=== PATIENT | female | born 1990 | race American Indian/Alaskan Native ===

== ENCOUNTER 2019-03-19 09:22 | Emergency (ER) | payer SELFPAY ==
--- NOTE | 2019-03-19 10:38 | Emergency Department Report ---
ED Dysuria HPI - HPI Chief Complaint: Vaginal Bleeding Stated Complaint: VAGINAL BLEEDING/CRAMPS Time Seen by Provider: 03/19/19 10:34 Symptoms: Dysuria: No, Frequency: No, Suprapubic Pain: No, Flank Pain: No, Fever: No, Hematuria: No, Abdominal Pain: No, Previous UTI's: No Other History: Patient is a 28-year-old comes to the ER today concerned that she is because of irregular periods. She is on no home medications. She denies any major medical problems. She is 4 para 2 she's had one miscarriage and one . ED Review of Systems ROS: Stated complaint: VAGINAL BLEEDING/CRAMPS Other details as noted in HPI Comment: All other systems reviewed and negative ED Past Medical Hx - Past Medical History Previous Medical History?: No - Surgical History Past Surgical History?: No - Social History Smoking Status: Former Smoker Substance Use Type: None Dysuria Exam - Exam General: Vital signs noted. No distress. Alert and acting appropriately. Exam: Yes Moist Mucous Membranes, No CVA Tenderness, No Abdominal Tenderness, No Rigidity or Guarding ED Course Vital Signs 03/19/19 09:36 Temperature 99.1 F Pulse Rate 72 Respiratory 16 Rate Blood Pressure 179/156 [Left] O2 Sat by Pulse 100 Oximetry ED Medical Decision Making - Lab Data Result diagrams: 03/19/19 10:53 03/19/19 10:53 - Medical Decision Making Lab Results 03/19/19 03/19/19 03/19/19 Range/Units 10:53 10:53 Unknown WBC 3.4 L (4.5-11.0) K/mm3 RBC 3.69 (3.65-5.03) M/mm3 Hgb 13.1 (10.1-14.3) gm/dl Hct 35.7 (30.3-42.9) % MCV 97 (79-97) fl MCH 35 H (28-32) pg MCHC 37 H (30-34) % RDW 11.9 L (13.2-15.2) % Plt Count 183 (140-440) K/mm3 Sodium 136 L (137-145) mmol/L Potassium 4.4 (3.6-5.0) mmol/L Chloride 100.3 (98-107) mmol/L Carbon Dioxide 25 (22-30) mmol/L Anion Gap 15 mmol/L BUN 7 (7-17) mg/dL Creatinine 0.7 (0.7-1.2) mg/dL Estimated GFR > 60 ml/min BUN/Creatinine Ratio 10 % Glucose 102 H (65-100) mg/dL Calcium 8.9 (8.4-10.2) mg/dL Urine Color Yellow (Yellow) Urine Turbidity Hazy (Clear) Urine pH 6.0 (5.0-7.0) Ur Specific [place] 1.009 (1.003-1.030) Urine Protein <15 mg/dl (Negative) mg/dL Urine Glucose (UA) Neg (Negative) mg/dL Urine Ketones Neg (Negative) mg/dL Urine Blood Lg (Negative) Urine Nitrite Neg (Negative) Urine Bilirubin Neg (Negative) Urine Urobilinogen < 2.0 (<2.0) mg/dL Ur Leukocyte Esterase Neg (Negative) Urine WBC (Auto) 6.0 (0.0-6.0) /HPF Urine RBC (Auto) 125.0 (0.0-6.0) /HPF U Epithel Cells (Auto) 1.0 (0-13.0) /HPF Urine HCG, Qual Negative (Negative) Vital Signs 03/19/19 03/19/19 03/19/19 09:36 11:49 11:50 Temperature 99.1 F Pulse Rate 72 59 L Respiratory 16 16 16 Rate Blood Pressure 179/156 109/69 [Left] O2 Sat by Pulse 100 Oximetry Labs noted. Patient was concerned that she is . Hemoglobin is normal C home with discharge follow-up clinic care with PROVIDER ENGAGEMENT EXECUTIVE. Critical care attestation.: If time is entered above; I have spent that time in minutes in the direct care of this critically ill patient, excluding procedure time. ED Disposition Clinical Impression: DUB (dysfunctional uterine bleeding) Disposition: DC-01 TO HOME OR SELFCARE Is pt being admited?: No Does the pt Need Aspirin: No Condition: Stable Instructions: Menorrhagia (ED) Additional Instructions: DIET TOLERATED FOLLOW UP WITH OBGYN REFERRAL BELOW ACTIVITY TOLERATED MOTRIN OR TYLENOL FOR PAIN OR FEVER RETURN TO THE ER FOR WORSENING SYMPTOMS NOT RELIEVED BY YOUR MEDICATIONS. BP WAS ELEVATED TODAY. PLEASE MONITOR IF IT PERSISTS FOLLOW UP WITH PCP REFERRAL BELOW Referrals: SHARMIN WILKINSON MD [Staff Physician] - 3-5 Days MILANA LEYVA MD [Staff Physician] - 3-5 Days Time of Disposition: 11:08
[2019-03-19 10:51] LABS: Bilirubin,Urine NEG (Negative); Blood,Urine LG (Negative); Color,Urine Yellow (Yellow); HCG Qualitative,Urine Negative (Negative); Protein,Urine <15 mg/dL mg/dL (Negative); Urobilinogen,Urine < 2.0 mg/dL (<2.0)
[2019-03-19 11:03] LABS: Mean Corpuscular HGB Conc 37 % (30-34); Mean Corpuscular Volume 97 fl (79-97); Platelet Count 183 K/mm3 (140-440); Red Blood Count 3.69 M/mm3 (3.65-5.03); Red Cell Distribution Width 11.9 % (13.2-15.2)
[2019-03-19 11:06] LABS: Hematocrit 35.7 % (30.3-42.9); Hemoglobin 13.1 gm/dl (10.1-14.3)
[2019-03-19 11:24] LABS: BUN/Creatinine Ratio 10; Blood Urea Nitrogen 7 mg/dL (7-17); Calcium 8.9 mg/dL (8.4-10.2); Hemolysis Index 15
[2019-03-19 11:50] VITALS: BP 109/69
== END 2019-03-19 11:51 | disposition home or self-care (01) ==
LOC: ED 09:22
DX: N93.8 Other specified abnormal uterine and vaginal bleeding (principal); Z87.891 Personal history of nicotine dependence; Z88.6 Allergy status to analgesic agent
CPT/HCPCS: 36415; 80048; 81001; 81025; 85027

== ENCOUNTER 2019-04-09 13:19 | Emergency (ER) | payer OTHER ==
[2019-04-09 13:30] VITALS: BP 111/66
--- NOTE | 2019-04-09 13:31 | Event Note ---
ED Screening Note ED Screening Note: abscess below the chin began yesterday small amount of drainage thinks she had an insect bite but did not feel or see anything bite her no PMHx no DM This initial assessment/diagnostic orders/clinical plan/treatment(s) is/are subject to change based on patients health status, clinical progression and re- assessment by fellow clinical providers in the ED. Further treatment and workup at subsequent clinical providers discretion. Patient/guardian urged not to elope from the ED as their condition may be serious if not clinically assessed and managed.
[2019-04-09] MEDS ORDERED: CLEOCIN PO ONE (15:15)
[2019-04-09] MEDS ORDERED: IBUPROFEN PO ONE (15:15)
--- NOTE | 2019-04-09 15:17 | Emergency Department Report ---
Abscess Boil HPI - HPI Chief Complaint: Skin/Abscess/Foreign Body Stated Complaint: SPIDER BITE Time Seen by Provider: 04/09/19 13:29 Duration: 2 Days Location: Head (left chin) History: Yes Pain, Yes Insect Bite, No Fever, No Purulent Drainage, No Numbness, No Foreign Body, No Previous History HPI: This 29-year-old female who presents to ED complaining of pain and redness of the left driver that happened 2 days ago. Patient said yesterday she noticed the area was red and painful to touch. Patient states she noticed a little bit of drainage but otherwise no fever, no nausea vomiting or abdominal pain. Home Medications: Previous Rx's Medication Instructions Recorded Last Taken Type Clindamycin [Clindamycin CAP] 300 mg PO TID #30 capsule 04/09/19 Unknown Rx Ibuprofen [Motrin 800 MG tab] 800 mg PO TID #30 tablet 04/09/19 Unknown Rx Allergies/Adverse Reactions: Allergies Allergy/AdvReac Type Severity Reaction Status Date / Time acetaminophen [From Tylenol] AdvReac Unknown Verified 04/09/19 13:22 ED Review of Systems ROS: Stated complaint: SPIDER BITE Other details as noted in HPI Comment: All other systems reviewed and negative ED Past Medical Hx - Past Medical History Previous Medical History?: No - Surgical History Past Surgical History?: Yes Additional Surgical History: C/S - Social History Smoking Status: Current Every Day Smoker - Medications Home Medications: Home Medications Medication Instructions Recorded Confirmed Last Taken Type Clindamycin [Clindamycin CAP] 300 mg PO TID #30 capsule 04/09/19 Unknown Rx Ibuprofen [Motrin 800 MG tab] 800 mg PO TID #30 tablet 04/09/19 Unknown Rx ED Abscess Boil Physical Exam - Exam General: Vital signs noted. No distress. Alert and acting appropriately. Size: 1 cm Exam: Yes Tenderness, Yes Normal Neurologic Exam, Yes Normal Circulation, No Fluctuance, No Surrounding Cellulites/Erythema, No Lymphangitis, No Crepitation, No Heart Murmur Exam: Redness, nonfluctuant, cellulitis tender 1 cm noted at left chin ED Course Vital Signs 04/09/19 13:29 Temperature 98.7 F Pulse Rate 95 H Respiratory 16 Rate Blood Pressure 111/66 [Right] O2 Sat by Pulse 99 Oximetry Critical care attestation.: If time is entered above; I have spent that time in minutes in the direct care of this critically ill patient, excluding procedure time. ED Medical Decision Making - Medical Decision Making 29-year-old female presents with insect bite/cellulitis of the left chin. Patient was given clindamycin and Motrin in the ED. Discussed warm compresses 3 times a day she will be sent home on antibiotics. Vital signs are normal she is in no acute distress she has instructions to follow up with her primary care physician ED Disposition Clinical Impression: Insect bite, Cellulitis Disposition: TO HOME OR SELFCARE Is pt being admited?: No Does the pt Need Aspirin: No Condition: Stable Instructions: Cellulitis (ED), Insect Bite or Sting (ED) Additional Instructions: Make sure to follow up with the primary care physician as discussed. Take all your medications as you've been prescribed. If you have any worsening symptoms or develop new symptoms please return to ED immediately. Prescriptions: Clindamycin [Clindamycin CAP] 300 mg PO TID #30 capsule Ibuprofen [Motrin 800 MG tab] 800 mg PO TID #30 tablet Referrals: FELIPA CHATTERJEE MD [Primary Care Provider] - 3-5 Days [facility] [Outside] - 3-5 Days [facility] [Outside] - 3-5 Days Forms: Accompanied Note, Work/School Release Form(ED) Time of Disposition: 15:24
== END 2019-04-09 16:10 | disposition home or self-care (01) ==
LOC: ED 13:19
DX: L03.211 Cellulitis of face (principal); F17.200 Nicotine dependence, unspecified, uncomplicated; Z88.8 Allergy status to other drugs, medicaments and biological substances; Z79.1 Long term (current) use of non-steroidal anti-inflammatories (NSAID)
CPT/HCPCS: 99283

== ENCOUNTER 2019-08-22 12:56 | Emergency (ER) | payer MEDICAID ==
[2019-08-22 13:13] VITALS: BP 107/54
--- NOTE | 2019-08-22 13:23 | Event Note ---
ED Screening Note ED Screening Note: subjective fever that began two days ago temperature is normal in triage lower abd discomfort 13 weeks pressure when she urinates RESERVATIONS CLERK: Moira wrigth at [facility] /P:2/A:1 no PMHx allergy to tylenol This initial assessment/diagnostic orders/clinical plan/treatment(s) is/are subject to change based on patients health status, clinical progression and re- assessment by fellow clinical providers in the ED. Further treatment and workup at subsequent clinical providers discretion. Patient/guardian urged not to elope from the ED as their condition may be serious if not clinically assessed and managed. Initial orders include: labs, UA, US
[2019-08-22 13:45] LABS: Basophils % (Auto) 0.2 % (0.0-1.8); Eosinophils # (Auto) 0.2 K/mm3 (0.0-0.4); Eosinophils % (Auto) 4.3 % (0.0-4.3); Hematocrit 33.9 % (30.3-42.9); Hemoglobin 11.7 gm/dl (10.1-14.3); Lymphocytes # (Auto) 1.2 K/mm3 (1.2-5.4); Lymphocytes % (Auto) 32.9 % (13.4-35.0); Mean Corpuscular HGB Conc 35 % (30-34); Mean Corpuscular Volume 94 fl (79-97); Monocytes # (Auto) 0.4 K/mm3 (0.0-0.8); Monocytes % (Auto) 11.5 % (0.0-7.3); Platelet Count 171 K/mm3 (140-440); Red Blood Count 3.59 M/mm3 (3.65-5.03); Red Cell Distribution Width 11.9 % (13.2-15.2)
[2019-08-22 14:04] LABS: Alanine Aminotransferase 12 units/L (7-56); Albumin 3.8 g/dL (3.9-5); BUN/Creatinine Ratio 17; Blood Urea Nitrogen 10 mg/dL (7-17); Calcium 9.2 mg/dL (8.4-10.2); Hemolysis Index 4
[2019-08-22 14:17] LABS: Bilirubin,Urine NEG (Negative); Blood,Urine NEG (Negative); Color,Urine Straw (Yellow); Protein,Urine <15 mg/dL mg/dL (Negative); Urobilinogen,Urine < 2.0 mg/dL (<2.0)
--- NOTE | 2019-08-22 15:07 | Ultrasound Report ---
ULTRASOUND OBSTETRIC INDICATION: Abdominal pain. Estimated clinical gestational age of 13 weeks, 2 days. TECHNIQUE: Transabdominal. COMPARISON: None available. FINDINGS: A single live intrauterine is seen with a crown-rump length of 7.59 cm, consistent with an estimated gestational age of 13 weeks, 5 days. The heart rate is 166 bpm. No acute abnormality is seen. The uterus is unremarkable as visualized. The right ovary is not seen. The left ovary is normal in size with expected color flow and contains a cyst measuring 2.9 x 2.6 x 2.1 cm. No free fluid is seen. IMPRESSION: Single live intrauterine with an estimated age of 13 weeks, 5 days. Signer Name: Sivakumar Good MD Signed: 08/22/2019 3:03 PM Workstation Name: [id number]
--- NOTE | 2019-08-22 15:42 | Emergency Department Report ---
ED Peds Fever HPI - General Chief Complaint: Fever Stated Complaint: FEVER, ABD PAIN AND 13 WEEKS PREG Time Seen by Provider: 08/22/19 13:21 Source: patient Mode of arrival: Ambulatory Limitations: No Limitations - History of Present Illness Initial Comments: subjective fever that began two days ago temperature is normal in triage lower abd discomfort 13 weeks pressure when she urinates NATIONAL BUSINESS DIRECTOR: Moira wright at [facility] /P:2/A:1 no PMHx allergy to tylenol Complaint: fever Onset/Timin -: days(s) Temperature Source: subjective Hydration Status: drinking fluids Activity Level at Home: normal Pain Description: sharp, intermittent Associated Symptoms: nausea, vomiting (this morning) Treatments Prior to Arrival: none - Related Data Immunizations UTD: yes Previous Rx's Medication Instructions Recorded Last Taken Type Clindamycin [Clindamycin CAP] 300 mg PO TID #30 capsule 04/09/19 Unknown Rx Ibuprofen [Motrin 800 MG tab] 800 mg PO TID #30 tablet 04/09/19 Unknown Rx Allergies Allergy/AdvReac Type Severity Reaction Status Date / Time acetaminophen [From Tylenol] AdvReac Unknown Verified 04/09/19 13:22 ED Review of Systems ROS: Stated complaint: FEVER, ABD PAIN AND 13 WEEKS PREG Other details as noted in HPI Comment: All other systems reviewed and negative Pediatric Past Medical History - Surgeries & Procedures Additional Surgical History: C/S ED Physical Exam - General Limitations: No Limitations General appearance: alert, in no apparent distress - Head Head exam: Present: atraumatic, normocephalic - Eye Eye exam: Present: normal appearance - ENT ENT exam: Present: mucous membranes moist - Neck Neck exam: Present: normal inspection - Respiratory Respiratory exam: Present: normal lung sounds bilaterally. Absent: respiratory distress - Cardiovascular Cardiovascular Exam: Present: regular rate, normal rhythm. Absent: systolic murmur, diastolic murmur, rubs, gallop - GI/Abdominal GI/Abdominal exam: Present: soft, normal bowel sounds - Extremities Exam Extremities exam: Present: normal inspection - Back Exam Back exam: Present: normal inspection - Neurological Exam Neurological exam: Present: alert, oriented X3, normal gait - Psychiatric Psychiatric exam: Present: normal affect, normal mood - Skin Skin exam: Present: warm, dry, intact, normal color. Absent: rash ED Course Vital Signs 08/22/19 13:09 Temperature 98.8 F Pulse Rate 75 Respiratory 18 Rate Blood Pressure 107/54 O2 Sat by Pulse 97 Oximetry ED Medical Decision Making - Lab Data Result diagrams: 08/22/19 13:31 08/22/19 13:31 Laboratory Results - last 72 hr 08/22/19 08/22/19 08/22/19 13:31 13:31 13:31 WBC 3.6 L RBC 3.59 L Hgb 11.7 Hct 33.9 MCV 94 MCH 33 H MCHC 35 H RDW 11.9 L Plt Count 171 Lymph % (Auto) 32.9 [place] % (Auto) 11.5 H Eos % (Auto) 4.3 Baso % (Auto) 0.2 Lymph # 1.2 Powell # 0.4 Eos # 0.2 Baso # 0.0 Seg Neutrophils % 51.1 Seg Neutrophils # 1.8 Sodium 137 Potassium 3.7 Chloride 102.3 Carbon Dioxide 21 L Anion Gap 17 BUN 10 Creatinine 0.6 L Estimated GFR > 60 BUN/Creatinine Ratio 17 Glucose 88 Calcium 9.2 Total Bilirubin < 0.20 AST 20 ALT 12 Alkaline Phosphatase 62 Total Protein 7.6 Albumin 3.8 L Albumin/Globulin Ratio 1.0 HCG, Quant 17780 H Urine Color Urine Turbidity Urine pH Ur Specific [place] Urine Protein Urine Glucose (UA) Urine Ketones Urine Blood Urine Nitrite Urine Bilirubin Urine Urobilinogen Ur Leukocyte Esterase Urine WBC (Auto) Urine RBC (Auto) U Epithel Cells (Auto) 08/22/19 13:53 WBC RBC Hgb Hct MCV MCH MCHC RDW Plt Count Lymph % (Auto) [place] % (Auto) Eos % (Auto) Baso % (Auto) Lymph # Powell # Eos # Baso # Seg Neutrophils % Seg Neutrophils # Sodium Potassium Chloride Carbon Dioxide Anion Gap BUN Creatinine Estimated GFR BUN/Creatinine Ratio Glucose Calcium Total Bilirubin AST ALT Alkaline Phosphatase Total Protein Albumin Albumin/Globulin Ratio HCG, Quant Urine Color Straw Urine Turbidity Clear Urine pH 7.0 Ur Specific [place] 1.005 Urine Protein <15 mg/dl Urine Glucose (UA) Neg Urine Ketones Neg Urine Blood Neg Urine Nitrite Neg Urine Bilirubin Neg Urine Urobilinogen < 2.0 Ur Leukocyte Esterase Neg Urine WBC (Auto) 1.0 Urine RBC (Auto) 2.0 U Epithel Cells (Auto) 4.0 - Radiology Data Radiology results: report reviewed Patient: ANNE MARIE CRISTOBAL MR#: [id number] : 1990 Acct:[id number] Age/Sex: 29 / F ADM Date: 08/22/19 Loc: ED Attending Dr: Ordering Physician: AMPARO BETH Date of Service: 08/22/19 Procedure(s): US OB <= 14 wk fetus add gest Accession Number(s): [id number] cc: AMPARO BETH ULTRASOUND OBSTETRIC INDICATION: Abdominal pain. Estimated clinical gestational age of 13 weeks, 2 days. TECHNIQUE: Transabdominal. COMPARISON: None available. FINDINGS: A single live intrauterine is seen with a crown-rump length of 7.59 cm, consistent with an estimated gestational age of 13 weeks, 5 days. The heart rate is 166 bpm. No acute abnorma lity is seen. The uterus is unremarkable as visualized. The right ovary is not seen. The left ovary is normal in size with expected color flow and contains a cyst measuring 2.9 x 2.6 x 2.1 cm. No free fluid is seen. IMPRESSION: Single live intrauterine with an estimated age of 13 weeks, 5 days. Signer Name: Sivakumar Good MD Signed: 08/22/2019 3:03 PM Workstation Name: [id number] Transcribed By: MN Dictated By: Sivakumra Good MD Electronically Authenticated By: Sivakumar Good MD Signed Date/Time: 08/22/19 150 DD/ 1501 TD/TT: - Medical Decision Making subjective fever that began two days ago temperature is normal in triage lower abd discomfort 13 weeks pressure when she urinates NATIONAL BUSINESS DIRECTOR: Moira wright at [facility] /P:2/A:1 no PMHx allergy to tylenol Critical care attestation.: If time is entered above; I have spent that time in minutes in the direct care of this critically ill patient, excluding procedure time. ED Disposition Clinical Impression: Pain of muscle of abdomen Disposition: DC-01 TO HOME OR SELFCARE Is pt being admited?: No Does the pt Need Aspirin: No Condition: Stable Additional Instructions: Ultrasounds negative for any acute findings. Pregnancies at 13 weeks and 5 days. Urinalysis is negative for any acute findings or infection. Most likely having lower abdominal pain secondary to ligament movement as baby gets larger. I do recommend follow-up with your OB doctor in the next 2-3 days if his symptoms persist. Follow-up sooner if he starts to have any vaginal bleeding. Referrals: PRIMARY CARE, [Primary Care Provider] - 3-5 Days [facility] [Provider Group] - 3-5 Days SUDHEER MEJIA MD [Staff Physician] - 3-5 Days
== END 2019-08-22 16:15 | disposition home or self-care (01) ==
LOC: ED 12:56
DX: O26.891 Other specified pregnancy related conditions, first trimester (principal); R10.9 Unspecified abdominal pain; M79.18 Myalgia, other site; O75.2 Pyrexia during labor, not elsewhere classified; Z3A.13 13 weeks gestation of pregnancy; Z88.6 Allergy status to analgesic agent
CPT/HCPCS: 36415; 76801; 76802; 80053; 81001; 84702; 85025